=== PATIENT | female | born 1940 | race Two or more races ===

== ENCOUNTER 2019-02-20 17:55 | Emergency (ER) | payer OTHER, MEDICARE ==
[~2019-02-20] VITALS: Ht 167.6 cm; Wt 91.0 kg
[2019-02-20] MEDS ORDERED: SODIUM CHLORIDE 0.9% 1,000 ML IV ONE (18:37)
[2019-02-20] MEDS ORDERED: DILTIAZEM HCL 5MG/ML 5ML VIAL IV ONE (18:45)
[2019-02-20 18:56] LABS: BASOPHILS % 0.4 % (0.0-2.0); EOSINOPHILS % 2.3 % (0.0-5.0); HEMATOCRIT. 35.5 % (36.0-48.0); HEMOGLOBIN. 11.7 g/dL (12.0-16.0); LYMPHOCYTES % 36.7 % (20.0-50.0); MEAN CORPUSCULAR HEMOGLOBIN 25.9 pg (28.0-32.0); MEAN CORPUSCULAR VOLUME 78.6 fL (81.0-99.0); MEAN PLATELET VOLUME 8.4 fl (7.4-10.4); MONOCYTES % 9.3 % (2.0-8.0); NEUTROPHILS % 51.3 % (40.0-76.0); PLATELET 243 x1000/uL (130-400); RED BLOOD CELL COUNT 4.52 mill/uL (4.2-5.4); RED CELL DISTRIBUTION WIDTH 12.9 % (11.6-14.6)
[2019-02-20 19:03] LABS: CHLORIDE 104 mEq/L (98-107); PROTHROMBIN TIME 10.2 sec (9.6-11.0)
[2019-02-20] MEDS ORDERED: POTASSIUM CHLORIDE 20MEQ TABLET SR PO ONE (19:15)
[2019-02-20] MEDS ORDERED: ASPIRIN 325MG EC TABLET PO ONE (19:30)
[2019-02-20 22:06] VITALS: BP 170/66
== END 2019-02-20 22:08 | disposition short-term general hospital (02) ==
LOC: ER 19:48 → CANBEDREQ 22:53
DX: I48.91 Unspecified atrial fibrillation (principal); R07.89 Other chest pain; E11.65 Type 2 diabetes mellitus with hyperglycemia; D64.9 Anemia, unspecified; I10 Essential (primary) hypertension; Z86.73 Personal history of transient ischemic attack (TIA), and cerebral infarction without residual deficits; Z98.890 Other specified postprocedural states
CPT/HCPCS: 36415; 71045; 80053; 83880; 84484; 85025; 85610; 93005; 96361; 96374; 99291; J3490; J7030

== ENCOUNTER 2019-06-29 10:28 | Inpatient (IN) | payer MEDICARE, OTHER ==
[~2019-06-29] VITALS: Ht 160 cm; Wt 75.1 kg
[2019-06-29] MEDS ORDERED: HYDRALAZINE 20MG/ML VIAL IV ONE (10:45)
[2019-06-29 10:58] LABS: BASOPHILS % 0.4 % (0.0-2.0); EOSINOPHILS % 5.8 % (0.0-5.0); HEMOGLOBIN. 11.7 g/dL (12.0-16.0); LYMPHOCYTES % 37.8 % (20.0-50.0); MEAN CORPUSCULAR HEMOGLOBIN 24.8 pg (28.0-32.0); MEAN CORPUSCULAR VOLUME 76.7 fL (81.0-99.0); MEAN PLATELET VOLUME 7.7 fl (7.4-10.4); PLATELET 227 x1000/uL (130-400); RED CELL DISTRIBUTION WIDTH 14.6 % (11.6-14.6)
[2019-06-29 11:05] LABS: INR 1.2; PROTHROMBIN TIME 11.9 sec (9.6-11.0)
[2019-06-29 11:07] LABS: CHLORIDE 112 mEq/L (98-107)
[2019-06-29] MEDS ORDERED: NICARDIPINE 40MG/200ML PREMIX 200 ML IV ONE (11:07)
[2019-06-29] MEDS ORDERED: ALTEPLASE 100MG/VIAL IV STA (11:07)
[2019-06-29] MEDS ORDERED: ALTEPLASE IV STA ×2 (11:07→11:41)
[2019-06-29 11:10] LABS: ETHANOL BLOOD < 10 mg/dL
[2019-06-29 11:14] LABS: LDL CHOLESTEROL 134 mg/dL (5-100)
[2019-06-29] MEDS ORDERED: *NO ASPIRIN X 24 HOURS XX SCH (11:45)
[2019-06-29 12:41] LABS: CLARITY URINE CLEAR (CLEAR); COLOR URINE YELLOW (YELLOW); KETONES URINE NEGATIVE (NEGATIVE); LEUKOCYTE ESTERASE URINE NEGATIVE (NEGATIVE); NITRITE URINE NEGATIVE (NEGATIVE); OCCULT BLOOD URINE NEGATIVE (NEGATIVE); PROTEIN URINE 2+ (NEGATIVE); SPECIFIC GRAVITY URINE 1.026 (1.005-1.030); UROBILINOGEN URINE 0.2 E.U./dL (0.2-1.0)
[2019-06-29 13:16] LABS: *BARBITURATES SCREEN URINE NEGATIVE (NEGATIVE); *BENZODIAZEPINES SCREEN URINE NEGATIVE (NEGATIVE); CANNABINOID URINE SCREEN NEGATIVE (NEGATIVE); METHADONE URINE SCREEN NEGATIVE (NEGATIVE); OPIATES URINE SCREEN NEGATIVE (NEGATIVE); PHENCYCLIDINE URINE SCREEN NEGATIVE (NEGATIVE)
[2019-06-29 13:17] LABS: *COCAINE SCREEN URINE NEGATIVE (NEGATIVE)
[2019-06-29 13:19] LABS: *AMPHETAMINES SCREEN URINE NEGATIVE (NEGATIVE)
[2019-06-29] MEDS ORDERED: IOHEXOL-350 100 ML BOTTLE ONE (14:15)
[2019-06-29] MEDS ORDERED: IPRATROPIUM/ALBUTEROL 0.5-3(2.5)MG/3ML NEB HHN PRN (16:30)
[2019-06-29] MEDS ORDERED: SODIUM CHLORIDE 0.45% 1,000 ML IV SCH (17:06)
[2019-06-29] MEDS ORDERED: DIPHENHYDRAMINE 50MG/ML VIAL IV PRN (17:15)
[2019-06-29] MEDS ORDERED: IPRATROPIUM/ALBUTEROL 0.5-3(2.5)MG/3ML NEB NEB PRN (17:15)
[2019-06-29] MEDS ORDERED: MAGNESIUM/ALUMINUM HYDROXIDE/SIMETHICONE 30ML UDC PO PRN (17:15)
[2019-06-29] MEDS ORDERED: GUAIFENESIN 200MG/10ML SUGAR FREE UDC PO PRN (17:15)
[2019-06-29] MEDS ORDERED: DOCUSATE SODIUM 100MG CAPSULE PO PRN (17:15)
[2019-06-29] MEDS ORDERED: HYDROCODONE/ACETAMINOPHEN 5/325MG TABLET PO PRN (17:15)
[2019-06-29] MEDS ORDERED: ACETAMINOPHEN 325MG TABLET PO PRN (17:15)
[2019-06-29] MEDS ORDERED: ONDANSETRON HCL 4MG/2ML INJ IV PRN (17:15)
[2019-06-29] MEDS ORDERED: LORAZEPAM 2MG/ML CPJ IV PRN (17:15)
[2019-06-29] MEDS ORDERED: MORPHINE SULFATE 2 MG/ML CPJ (NOT FOR IM USE) IV PRN (20:00)
[2019-06-29] MEDS ORDERED: NA PHOS,M-B/NA PHOS,DI-BA ENEMA 118ML PR PRN (21:00)
[2019-06-29] MEDS: CLONIDINE 0.1MG TABLET PO PRN (21:35)
[2019-06-29 23:42] LABS: CHLORIDE 113 mEq/L (98-107)
[2019-06-30] VITALS (54 sets, daily range): BP systolic 114–179; BP diastolic 18–81
[2019-06-30] MEDS ORDERED: NICARDIPINE 40MG/200ML PREMIX 200 ML IV ONE (03:30)
[2019-06-30 05:46] LABS: BASOPHILS % 0.7 % (0.0-2.0); EOSINOPHILS % 3.7 % (0.0-5.0); HEMATOCRIT. 36.5 % (36.0-48.0); LYMPHOCYTES % 28.6 % (20.0-50.0); MEAN CORPUSCULAR HEMOGLOBIN 25.1 pg (28.0-32.0); MEAN CORPUSCULAR VOLUME 76.2 fL (81.0-99.0); MEAN PLATELET VOLUME 8.2 fl (7.4-10.4); MONOCYTES % 8.5 % (2.0-8.0); NEUTROPHILS % 58.5 % (40.0-76.0); PLATELET 240 x1000/uL (130-400); RED BLOOD CELL COUNT 4.78 mill/uL (4.2-5.4); RED CELL DISTRIBUTION WIDTH 14.6 % (11.6-14.6)
[2019-06-30 05:50] LABS: CHLORIDE 113 mEq/L (98-107)
[2019-06-30 05:57] LABS: LDL CHOLESTEROL 155 mg/dL (5-100)
[2019-06-30 05:59] LABS: HDL CHOLESTEROL 37 mg/dL (40-59); T4 FREE 1.54 ng/dL (0.76-1.46)
[2019-06-30] MEDS ORDERED: DEXTROSE 50% WATER 50ML SYRINGE IV PRN (09:15)
[2019-06-30] MEDS: CLONIDINE 0.1MG TABLET PO PRN (09:42)
[2019-06-30] MEDS ORDERED: NICARDIPINE 50 MG in SODIUM CHLORIDE 0.9% 230 ML IV PRN ×2 (10:00→15:00)
[2019-06-30] MEDS: BLOOD SUGAR DIAGNOSTIC STRIP TEST SCH ×3 (11:30→21:39)
[2019-06-30] MEDS: INSULIN LISPRO 100 UNITS/ML SUBCUT SCH ×3 (12:34→21:38)
[2019-06-30] MEDS ORDERED: CYAN25004 SL (18:07)
[2019-06-30] MEDS ORDERED: FURO40TA5 MT (18:07)
[2019-06-30] MEDS ORDERED: LOSA1TAB37 PO (18:07)
[2019-06-30] MEDS ORDERED: AMLO10TA4 PO (18:07)
[2019-06-30] MEDS ORDERED: ASPI-1160 PO (18:07)
[2019-06-30] MEDS ORDERED: METF1000 PO (18:07)
[2019-06-30] MEDS ORDERED: MAGN400T26 PO (18:07)
[2019-06-30] MEDS ORDERED: TAP5 MT (18:07)
[2019-06-30] MEDS ORDERED: GABA-531 PO (18:07)
[2019-06-30] MEDS ORDERED: NPH,100V SQ (18:07)
[2019-06-30] MEDS ORDERED: DABI150C PO (18:07)
[2019-06-30] MEDS ORDERED: ATOR80TA PO (18:07)
[2019-06-30] MEDS ORDERED: ALEN70TA68 PO (18:07)
[2019-06-30] MEDS ORDERED: BISO5TAB13 PO (18:07)
[2019-06-30] MEDS ORDERED: ATORVASTATIN CALCIUM 40MG TABLET PO SCH (21:00)
[2019-07-01] VITALS (69 sets, daily range): BP systolic 122–195; BP diastolic 51–127
[2019-07-01] MEDS: CLONIDINE 0.1MG TABLET PO PRN ×2 (03:34→12:36)
[2019-07-01] MEDS: BLOOD SUGAR DIAGNOSTIC STRIP TEST SCH ×3 (06:51→16:33)
[2019-07-01] MEDS: INSULIN LISPRO 100 UNITS/ML SUBCUT SCH ×2 (06:52→12:37)
[2019-07-01] MEDS ORDERED: ASPIRIN 81MG EC TABLET PO SCH (09:00)
[2019-07-01] MEDS ORDERED: ENOXAPARIN 40MG/0.4ML SYR SUBCUT SCH (09:00)
[2019-07-01] MEDS ORDERED: AMLODIPINE 10MG TABLET PO SCH (09:15)
[2019-07-01] MEDS ORDERED: METOPROLOL TARTRATE 25MG TABLET PO SCH (21:00)
== END 2019-07-01 17:27 | disposition short-term general hospital (02) | DRG 61 ==
LOC: ER 10:28 → MICUSO 13:36 → EDBEDREQ 13:41 → ENRESERV 06-30 08:27
PROVIDERS: ADMIT Internal Medicine; ATTEND Internal Medicine
DX: I63.512 Cerebral infarction due to unspecified occlusion or stenosis of left middle cerebral artery (principal); G93.41 Metabolic encephalopathy; I65.01 Occlusion and stenosis of right vertebral artery; I65.22 Occlusion and stenosis of left carotid artery; I67.2 Cerebral atherosclerosis; E86.0 Dehydration; I10 Essential (primary) hypertension; E11.9 Type 2 diabetes mellitus without complications; E05.90 Thyrotoxicosis, unspecified without thyrotoxic crisis or storm; E78.5 Hyperlipidemia, unspecified; I25.10 Atherosclerotic heart disease of native coronary artery without angina pectoris; I48.91 Unspecified atrial fibrillation; I63.81 Other cerebral infarction due to occlusion or stenosis of small artery; Z79.01 Long term (current) use of anticoagulants; Z79.4 Long term (current) use of insulin; Z79.899 Other long term (current) drug therapy; Z82.49 Family history of ischemic heart disease and other diseases of the circulatory system; R47.01 Aphasia
CPT/HCPCS: 36415; 37195; 70496; 70498; 70551; 71045; 80048; 80053; 80061; 80305; 80320; 81003; 82962; 83721; 84439; 84443; 84481; 84484; 85025; 92523; 92610; 93005; 93306; 93970; 96374; 97162; 99291; J0360; J1815; J2997; J3490; J7050; Q9967; G0480